=== PATIENT | female | born 1965 | race American Indian/Alaskan Native ===

== ENCOUNTER 2016-12-29 08:38 | Outpatient (CLI) | payer MEDICAID ==
[2016-12-29 09:28] LABS: Hematocrit 39.2 % (30.3-42.9); Hemoglobin 12.4 gm/dl (10.1-14.3); Mean Corpuscular HGB Conc 32 % (30-34); Platelet Count 265 K/mm3 (140-440); Red Blood Count 5.94 M/mm3 (3.65-5.03); Red Cell Distribution Width 15.1 % (13.2-15.2); White Blood Count 5.8 K/mm3 (4.5-11.0)
[2016-12-29 09:32] LABS: Mean Corpuscular Hemoglobin 21 pg (28-32); Mean Corpuscular Volume 66 fl (79-97)
[2016-12-29 09:54] LABS: Alanine Aminotransferase 19 units/L (7-56); Albumin 3.7 g/dL (3.9-5); Alkaline Phosphatase 30 units/L (35-129); Anion Gap 16 mmol/L; BUN/Creatinine Ratio 21.66; Bilirubin,Total 0.4 mg/dL (0.1-1.2); Blood Urea Nitrogen 13 mg/dL (7-17); Calcium 9.2 mg/dL (8.4-10.2); Carbon Dioxide 26 mmol/L (22-30); Chloride 99.1 mmol/L (98-107); Glucose 219 mg/dL (65-100); Potassium 3.5 mmol/L (3.6-5.0); Sodium 138 mmol/L (137-145); Total Protein 7.4 g/dL (6.3-8.2)
--- NOTE | 2016-12-29 11:10 | XRay Report ---
Chest 2 views: Compared to . History: Reflux. Findings: Normal cardiomediastinal silhouette. Trachea is midline. No consolidation, pneumothorax or pleural effusion. No significant interval change. Impression: No acute cardiopulmonary findings.
--- NOTE | 2016-12-29 11:30 | Fluoroscopy Report ---
Double contrast upper GI series. Findings: The esophagus is normal. There is no evidence of stricture or ulceration. No reflux was seen with water siphon testing. The stomach, duodenal bulb, and C-loop are normal. Impression: Normal double contrast upper GI study.
[2016-12-29 19:59] LABS: Cholesterol 230 mg/dL (50-199); HDL Cholesterol 44 mg/dL (40-59); LDL Cholesterol,Direct 159 mg/dL (50-130); Triglycerides 136 mg/dL (2-149)
== END 2016-12-29 08:39 | disposition home or self-care (01) ==
LOC: FLUORO 08:38
PROVIDERS: ATTEND Internal Medicine
DX: Z03.89 Encounter for observation for other suspected diseases and conditions ruled out (principal)
CPT/HCPCS: 36415; 71020; 74247; 80053; 80061; 82785; 84443; 85027

== ENCOUNTER 2017-01-17 01:17 | Emergency (ER) | payer MEDICAID ==
[2017-01-17 02:19] LABS: Anion Gap 19 mmol/L; BUN/Creatinine Ratio 14.28; Blood Urea Nitrogen 10 mg/dL (7-17); Calcium 9.4 mg/dL (8.4-10.2); Carbon Dioxide 25 mmol/L (22-30); Chloride 98.3 mmol/L (98-107); Glucose 404 mg/dL (65-100); Potassium 3.8 mmol/L (3.6-5.0); Sodium 138 mmol/L (137-145)
[2017-01-17 02:21] LABS: Basophils % (Auto) 0.2 % (0.0-1.8); Eosinophils % (Auto) 1.3 % (0.0-4.3); Hematocrit 39.1 % (30.3-42.9); Hemoglobin 12.5 gm/dl (10.1-14.3); Mean Corpuscular HGB Conc 32 % (30-34); Platelet Count 250 K/mm3 (140-440); Red Blood Count 5.92 M/mm3 (3.65-5.03); Red Cell Distribution Width 15.1 % (13.2-15.2); White Blood Count 7.2 K/mm3 (4.5-11.0)
[2017-01-17 02:30] LABS: Mean Corpuscular Hemoglobin 21 pg (28-32); Mean Corpuscular Volume 66 fl (79-97)
[2017-01-17] MEDS ORDERED: MORPHINE IV ONE (08:46)
[2017-01-17] MEDS ORDERED: TORADOL IV ONE (08:46)
[2017-01-17] MEDS ORDERED: ZOFRAN IV ONE (08:46)
[2017-01-17] MEDS ORDERED: NACL 0.9% 1000 ML 1,000 ML IV ONE (08:47)
[2017-01-17] MEDS ORDERED: CATAPRES PO ONE (08:47)
--- NOTE | 2017-01-17 09:07 | Emergency Department Report ---
ED Chest Pain HPI - General Chief Complaint: Chest Pain Stated Complaint: CHEST PAIN Time Seen by Provider: 01/17/17 08:28 Source: patient Mode of arrival: Ambulatory Limitations: No Limitations - History of Present Illness Initial Comments: 51-year-old female with a past medical history of morbid obesity, diabetes, hypertension, sleep apnea, narcolepsy, borderline high cholesterol and neuropathy and previous surgical history of cholecystectomy hysterectomy presents to the hospital complains of chest pain and hyperglycemia. Patient has had chest pain 1 week. Pain is in the middle of her chest, intermittent, described as a pressure. Moderate in intensity. Denies aggravating or alleviating factors. Positive shortness of breath reported. Patient states she has chronic shortness of breath and has been seen and evaluated by tmd teacher assistant Dr. Nevarez 4-5 months ago and received pulmonary function testing. As a result patient was started on Qvar and Albuterol inhaler as needed. Patient denies a specific pulmonary diagnosis. Patient also reports that her glucose has been in the 500s the last 2 days despite being compliant with her insulin. Patient states she hasn't had any of her medication this morning since she has been in the ED waiting to be seen Patient had a normal stress test 08/02/2016 - Related Data Home Medications Medication Instructions Recorded Confirmed Last Taken celeBREX 20 mg PO DAILY 08/02/16 01/17/17 08/01/16 Dextroamphetamine/Amphetamine 30 mg PO BID 01/17/17 01/17/17 Unknown [Adderall] Ergocalciferol [Vitamin D2] 1 cap PO QWEEK 01/17/17 01/17/17 Unknown Insulin Aspart Prot/Aspart(Nf) 25 units SQ BID 01/17/17 01/17/17 Unknown [Novolog Mix 70/30] Insulin Glargine [Lantus] 60 unit SUB-Q QHS 01/17/17 01/17/17 Unknown Previous Rx's Medication Instructions Recorded Last Taken Type Aspirin EC [Aspirin Enteric Coated 325 mg PO QDAY #100 tablet 11/28/15 08/01/16 Rx TAB] Lisinopril/Hydrochlorothiazide 10 mg PO QDAY #30 tablet 11/28/15 08/01/16 Rx [Zestoretic 20-25 mg] Metoprolol [Lopressor TAB] 12.5 mg PO BID #60 tablet 11/28/15 08/01/16 Rx Potassium Chloride [Klor-Con 8] 8 meq PO QDAY #30 tablet 11/28/15 08/01/16 Rx metFORMIN [Glucophage] 500 mg PO TID #90 tablet 11/28/15 08/01/16 Rx Famotidine [Pepcid] 20 mg PO BID #60 tablet 08/03/16 Unknown Rx Simvastatin [Zocor TAB] 20 mg PO QHS #30 tablet 08/03/16 Unknown Rx HYDROcodone/APAP 5-325 [[place] 1 each PO Q6HR PRN #20 tablet 01/17/17 Unknown Rx 5-325 mg TAB] Allergies Allergy/AdvReac Type Severity Reaction Status Date / Time No Known Allergies Allergy Verified 11/26/15 17:50 TIN score - Tin Score Age > 65: (0) No Aspirin use within the Past 7 Days: (0) No 3 or more CAD Risk Factors: (1) Yes 2 or more Angina events in past 24 hrs: (1) Yes Known CAD with more than 50% Stenosis: (0) No Elevated Cardiac Markers: (0) No ST Deviation Greater than 0.5mm: (0) No TIN Score: 2 ED Review of Systems ROS: Stated complaint: CHEST PAIN Other details as noted in HPI Comment: All other systems reviewed and negative Other: Constitutional: No fevers chills or weight loss Eyes: No eye pain visual changes or discharge ENT: No ear pain or throat pain Neck: Denies pain Respiratory: Denies cough wheezing Cardiovascular: Denies palpitations, syncope GI: Denies nausea, vomiting, diarrhea, constipation : Denies dysuria Musculoskeletal: Denies back pain Skin: Denies rash, lesions, erythema Neurologic: Denies headache, numbness, weakness Psychiatric: Denies suicidal ideation, hallucinations Hematological/lymphatic: Denies easy bruising, lymphadenopathy ED Past Medical Hx - Past Medical History Hx Hypertension: Yes Hx Congestive Heart Failure: No Hx Diabetes: Yes Hx Asthma: No Hx COPD: No Hx HIV: No Additional medical history: SLEEP APNEA. NARCOLEPSY. BORDERLINE HIGH CHOLESTEROL. OBESITY. NEUROPATHY - Surgical History Hx Cholecystectomy: Yes Additional Surgical History: HYSTERECTOMY - Social History Smoking Status: Never Smoker Substance Use Type: None - Medications Home Medications: Home Medications Medication Instructions Recorded Confirmed Last Taken Type Aspirin EC [Aspirin Enteric Coated 325 mg PO QDAY #100 tablet 11/28/15 01/17/1716 Rx TAB] Lisinopril/Hydrochlorothiazide 10 mg PO QDAY #30 tablet 11/28/15 01/17/17 Rx [Zestoretic 20-25 mg] Metoprolol [Lopressor TAB] 12.5 mg PO BID #60 tablet 11/28/15 01/17/17 08/01/16 Rx Potassium Chloride [Klor-Con 8] 8 meq PO QDAY #30 tablet 11/28/15 01/17/1708/01 Rx metFORMIN [Glucophage] 500 mg PO TID #90 tablet 11/28/15 01/17/17 08/01/16 Rx celeBREX 20 mg PO DAILY 08/02/16 01/17/17 08/01/16 History Famotidine [Pepcid] 20 mg PO BID #60 tablet 08/03/16 01/17/17 Unknown Rx Simvastatin [Zocor TAB] 20 mg PO QHS #30 tablet 08/03/16 01/17/17 Unknown Rx Dextroamphetamine/Amphetamine 30 mg PO BID 01/17/17 01/17/17 Unknown History [Adderall] Ergocalciferol [Vitamin D2] 1 cap PO QWEEK 01/17/17 01/17/17 Unknown History HYDROcodone/APAP 5-325 [[place] 1 each PO Q6HR PRN #20 tablet 01/17/17 Unknown Rx 5-325 mg TAB] Insulin Aspart Prot/Aspart(Nf) 25 units SQ BID 01/17/17 01/17/17 Unknown History [Novolog Mix 70/30] Insulin Glargine [Lantus] 60 unit SUB-Q QHS 01/17/17 01/17/17 Unknown History ED Physical Exam - General Limitations: No Limitations - Other Other exam information: General: No limitations, patient is alert in no acute distress Head exam: Atraumatic, normocephalic Eyes exam: Normal appearance ENT: Moist mucous membrane, normal oropharynx Neck exam: Normal inspection, full range of motion Respiratory exam: Clear to auscultation bilateral, no wheezes, rales, crackles Cardiovascular: Normal rate and rhythm Abdomen: Soft, nondistended, and nontender, with normal bowel sounds, no rebound, or guarding Extremity: Full range of motion normal inspection no deformity, no calf tenderness or edema Back: Normal Inspection, full range of motion, no tenderness Neurologic: Alert, oriented x3, cranial nerves intact, no motor or sensory deficit Psychiatric: normal affect, normal mood Skin: Warm, dry, intact ED Course Vital Signs 01/17/17 01/17/17 01/17/17 01:24 08:24 08:30 Temperature 98.4 F Pulse Rate 110 H 98 H Respiratory 20 14 Rate Blood Pressure 177/115 145/114 Blood Pressure [Left] O2 Sat by Pulse 98 98 98 Oximetry 01/17/17 01/17/17 01/17/17 09:00 09:30 10:00 Temperature Pulse Rate 93 H 88 102 H Respiratory 20 20 22 Rate Blood Pressure 145/114 145/114 145/114 Blood Pressure [Left] O2 Sat by Pulse 99 96 97 Oximetry 01/17/17 01/17/17 01/17/17 10:27 10:28 10:30 Temperature Pulse Rate 91 H Respiratory 20 20 15 Rate Blood Pressure 151/100 Blood Pressure [Left] O2 Sat by Pulse 94 Oximetry 01/17/17 01/17/17 01/17/17 11:00 11:22 11:30 Temperature Pulse Rate 95 H 90 87 Respiratory 14 14 Rate Blood Pressure 143/91 143/91 143/91 Blood Pressure [Left] O2 Sat by Pulse 98 93 Oximetry 01/17/17 01/17/17 01/17/17 12:00 12:30 13:00 Temperature Pulse Rate 91 H 92 H 84 Respiratory 18 17 17 Rate Blood Pressure 154/97 154/97 154/97 Blood Pressure 129/79 [Left] O2 Sat by Pulse 96 96 91 Oximetry 01/17/17 01/17/17 13:30 14:00 Temperature Pulse Rate 84 80 Respiratory 13 20 Rate Blood Pressure 129/79 146/94 Blood Pressure [Left] O2 Sat by Pulse 92 93 Oximetry - Consultations Consultation #1: 01/17/[address] Berrios was asked to consult on the patient regarding her insulin/ diabetes therapy. Dietary changes recommended. See his note ED Medical Decision Making - Lab Data Result diagrams: 01/17/17 01:45 01/17/17 01:45 Lab Results 01/17/17 01/17/17 01/17/17 Range/Units 01:45 01:45 01:45 WBC 7.2 (4.5-11.0) K/mm3 RBC 5.92 H (3.65-5.03) M/mm3 Hgb 12.5 (10.1-14.3) gm/dl Hct 39.1 (30.3-42.9) % MCV 66 L (79-97) fl MCH 21 L (28-32) pg MCHC 32 (30-34) % RDW 15.1 (13.2-15.2) % Plt Count 250 (140-440) K/mm3 Lymph % (Auto) 28.9 (13.4-35.0) % [place] % (Auto) 6.7 (0.0-7.3) % Eos % (Auto) 1.3 (0.0-4.3) % Baso % (Auto) 0.2 (0.0-1.8) % Lymph # 2.1 (1.2-5.4) K/mm3 [place] # 0.5 (0.0-0.8) K/mm3 Eos # 0.1 (0.0-0.4) K/mm3 Baso # 0.0 (0.0-0.1) K/mm3 Seg Neutrophils % 62.9 (40.0-70.0) % Seg Neutrophils # 4.5 (1.8-7.7) K/mm3 D-Dimer (0-234) ng/mlDDU VBG pH 7.406 (7.320-7.420) Sodium 138 (137-145) mmol/L Potassium 3.8 (3.6-5.0) mmol/L Chloride 98.3 (98-107) mmol/L Carbon Dioxide 25 (22-30) mmol/L Anion Gap 19 mmol/L BUN 10 (7-17) mg/dL Creatinine 0.7 (0.7-1.2) mg/dL Estimated GFR > 60 ml/min BUN/Creatinine Ratio 14.28 % Glucose 404 H (65-100) mg/dL Calcium 9.4 (8.4-10.2) mg/dL Troponin T < 0.010 (0.00-0.029) ng/mL Urine Color (Yellow) Urine Turbidity (Clear) Urine pH (5.0-7.0) Ur Specific [place] (1.003-1.030) Urine Protein (Negative) mg/dL Urine Glucose (UA) (Negative) mg/dL Urine Ketones (Negative) mg/dL Urine Blood (Negative) Urine Nitrite (Negative) Urine Bilirubin (Negative) Urine Urobilinogen (<2.0) mg/dL Ur Leukocyte Esterase (Negative) Urine WBC (Auto) (0.0-6.0) /HPF Urine RBC (Auto) (0.0-6.0) /HPF U Epithel Cells (Auto) (0-13.0) /HPF 01/17/17 01/17/17 01/17/17 Range/Units 04:35 07:29 09:21 WBC (4.5-11.0) K/mm3 RBC (3.65-5.03) M/mm3 Hgb (10.1-14.3) gm/dl Hct (30.3-42.9) % MCV (79-97) fl MCH (28-32) pg MCHC (30-34) % RDW (13.2-15.2) % Plt Count (140-440) K/mm3 Lymph % (Auto) (13.4-35.0) % [place] % (Auto) (0.0-7.3) % Eos % (Auto) (0.0-4.3) % Baso % (Auto) (0.0-1.8) % Lymph # (1.2-5.4) K/mm3 [place] # (0.0-0.8) K/mm3 Eos # (0.0-0.4) K/mm3 Baso # (0.0-0.1) K/mm3 Seg Neutrophils % (40.0-70.0) % Seg Neutrophils # (1.8-7.7) K/mm3 D-Dimer 243.84 H (0-234) ng/mlDDU VBG pH (7.320-7.420) Sodium (137-145) mmol/L Potassium (3.6-5.0) mmol/L Chloride (98-107) mmol/L Carbon Dioxide (22-30) mmol/L Anion Gap mmol/L BUN (7-17) mg/dL Creatinine (0.7-1.2) mg/dL Estimated GFR ml/min BUN/Creatinine Ratio % Glucose (65-100) mg/dL Calcium (8.4-10.2) mg/dL Troponin T < 0.010 < 0.010 (0.00-0.029) ng/mL Urine Color (Yellow) Urine Turbidity (Clear) Urine pH (5.0-7.0) Ur Specific [place] (1.003-1.030) Urine Protein (Negative) mg/dL Urine Glucose (UA) (Negative) mg/dL Urine Ketones (Negative) mg/dL Urine Blood (Negative) Urine Nitrite (Negative) Urine Bilirubin (Negative) Urine Urobilinogen (<2.0) mg/dL Ur Leukocyte Esterase (Negative) Urine WBC (Auto) (0.0-6.0) /HPF Urine RBC (Auto) (0.0-6.0) /HPF U Epithel Cells (Auto) (0-13.0) /HPF 01/17/17 01/17/17 Range/Units 09:21 11:09 WBC (4.5-11.0) K/mm3 RBC (3.65-5.03) M/mm3 Hgb (10.1-14.3) gm/dl Hct (30.3-42.9) % MCV (79-97) fl MCH (28-32) pg MCHC (30-34) % RDW (13.2-15.2) % Plt Count (140-440) K/mm3 Lymph % (Auto) (13.4-35.0) % [place] % (Auto) (0.0-7.3) % Eos % (Auto) (0.0-4.3) % Baso % (Auto) (0.0-1.8) % Lymph # (1.2-5.4) K/mm3 [place] # (0.0-0.8) K/mm3 Eos # (0.0-0.4) K/mm3 Baso # (0.0-0.1) K/mm3 Seg Neutrophils % (40.0-70.0) % Seg Neutrophils # (1.8-7.7) K/mm3 D-Dimer (0-234) ng/mlDDU VBG pH (7.320-7.420) Sodium (137-145) mmol/L Potassium (3.6-5.0) mmol/L Chloride (98-107) mmol/L Carbon Dioxide (22-30) mmol/L Anion Gap mmol/L BUN (7-17) mg/dL Creatinine (0.7-1.2) mg/dL Estimated GFR ml/min BUN/Creatinine Ratio % Glucose (65-100) mg/dL Calcium (8.4-10.2) mg/dL Troponin T < 0.010 (0.00-0.029) ng/mL Urine Color Yellow (Yellow) Urine Turbidity Clear (Clear) Urine pH 6.0 (5.0-7.0) Ur Specific [place] 1.025 (1.003-1.030) Urine Protein <15 mg/dl (Negative) mg/dL Urine Glucose (UA) >=500 (Negative) mg/dL Urine Ketones Tr (Negative) mg/dL Urine Blood Neg (Negative) Urine Nitrite Neg (Negative) Urine Bilirubin Neg (Negative) Urine Urobilinogen < 2.0 (<2.0) mg/dL Ur Leukocyte Esterase Neg (Negative) Urine WBC (Auto) 1.0 (0.0-6.0) /HPF Urine RBC (Auto) 2.0 (0.0-6.0) /HPF U Epithel Cells (Auto) 1.0 (0-13.0) /HPF - EKG Data -: EKG Interpreted by Me (sinus 109, nonspecific t wave abnl) - EKG Data When compared to previous EKG there are: no significant change (08/02/16) - Radiology Data Radiology results: report reviewed (chest x-ray: No acute findings chronic elevation of right hemidiaphragm) - Medical Decision Making Symptoms improved with the ED treatment. Glucose trending downward. No laboratory findings of DKA. Patient counseled on the importance of adhering to a lower calorie diet (1500 daily calorie intake suggested) and making better food choices. Patient admits to increase calorie intake specifically at night. Adjustments and insulin were not made and instead patient was instructed to try dietary changes and follow-up with her primary care doctor. Chest pain evaluation reveals unchanged EKG, for negative cardiac enzymes, negative d-dimer and pain is atypical. Recent negative stress test performed and July 2016. Patient feeling better and no longer complaining of chest pain prior to ED disposition. Patient received her regular prescribed medication for hypertension and had improvement in her BP during ED stay. - Differential Diagnosis DKA, [place], unstable angina, PE, costochondritis, infection Critical Care Time: No Critical care attestation.: If time is entered above; I have spent that time in minutes in the direct care of this critically ill patient, excluding procedure time. ED Disposition Clinical Impression: HTN (hypertension), Sleep apnea, Atypical chest pain, Uncontrolled diabetes mellitus Disposition: DISCHARGED TO HOME OR SELFCARE Is pt being admited?: No Does the pt Need Aspirin: No Condition: Stable Instructions: Hypertension (ED), Chest Pain (ED), Diabetes Mellitus Type 2 in Adults (ED) Additional Instructions: Take the medication as prescribed. Follow very closely with your primary care doctor for reevaluation of your diabetes medication. Return if symptoms worsen. Prescriptions: HYDROcodone/APAP 5-325 [[place] 5-325 mg TAB] 1 each PO Q6HR PRN #20 tablet PRN Reason: Pain Referrals: MALAIKA BASS MD [Primary Care Provider] - 2-3 Days Time of Disposition: 14:32
--- NOTE | 2017-01-17 09:33 | XRay Report ---
PA and lateral chest Chest pain, shortness of breath. The right hemidiaphragm is moderately elevated. The lungs are generally clear and the heart is normal in size with no vascular congestion. The pleural surfaces are smooth. These findings appear unchanged compared to November 2015. Impression: No acute findings. Chronic eventration of the right hemidiaphragm.
--- NOTE | 2017-01-17 09:35 | Admit Criteria Form ---
Admission Criteria Documentation: CHEST PAIN Clinical Indications for Admission to Inpatient Care (Place 'X' for any and all applicable criteria): Admission is indicated for chest pain and ANY ONE of the following(1)(2)(3)(4)(5 ): [ ]I. Angina with acute coronary syndrome (Also use Myocardial Infarction or Angina guideline) [ ]II. Hemodynamic instability [ ]III. Angina needing acute intervention as indicated by ALL of the following( 11)(12): [ ]a) Unstable angina is present as indicated by angina that is ANY ONE of the following: [ ]i) New onset [ ]ii) Nocturnal [ ]iii) Prolonged at rest [ ]iv) Progressive [X]b) Angina warrants acute intervention as indicated by ANY ONE of the following: [ ]i) Recurrent angina (e.g, not responding as previously to treatment) [ ]ii) Angina at rest or with low-level activities despite initial medical therapy [ ]iii) New or presumably new ST-segment depression on ECG [ ]iv) Signs or symptoms of heart failure (eg, dyspnea, pulmonary edema) [ ]v) New or worsening mitral regurgitation [ ]vi) Hemodynamic instability [ ]vii) Dangerous arrhythmia (eg, sustained ventricular tachycardia) [ ]viii) History of percutaneous coronary intervention within 6 months [ ]ix) History of coronary artery bypass graft surgery [X]x) TIN risk score of 2 or greater[A] [X]xi) History of Diabetes(14) [ ]xii) High-risk cardiac ischemia findings on noninvasive testing (e.g, echocardiogram, treadmill testing, nuclear scan) [ ]xiii) Chronic renal insufficiency (ie, estimated GFR less than 60 mL/min/1.732m) [ ]xiv) Left ventricular ejection fraction less than 40% [ ]IV. Evidence of UT (eg, cardiac biomarkers positive, ST-segment elevation on ECG) also use Myocardial Infarction Criteria Form. [ ]V. Pulmonary edema [ ]. Respiratory distress [ ]VII. Chest pain indicative of serious diagnosis other than coronary artery disease (eg, aortic dissection) [ ]VIII. Contraindications and/or Inappropriate clinical situations for Observational Care in patients with Chest Pain, when ANY ONE of the following is required: [ ]a) Patient with risk factor for pulmonary embolism, acute coronary syndrome and myocardial infarction (18) [ ]b) Patient with Pulmonary embolism require an average LOS of 4.3 days, therefore emergency department observation management is inappropriate 18,23 [ ]c) Painful condition/s in the elderly, have the highest rate of recidivism after emergency department observation management (10.8%) 20,21,22 [ ]d) Elevated cardiac biomarker requires intensive and exhaustive care (19) [ ]IX. General contraindications and/or Inappropriate clinical situations for Observational Care in patients with Chest Pain, when ANY ONE of the following is required: [ ]a) Prediction of prolongation of LOS based on ANY ONE of the following may be considered as a contraindication for observational care 2, 3, 4, 5, 6, 7, 8, 9, 10, 11 [ ]i) Age > 65 yrs. [ ]ii) Patient arriving by ambulance [ ]iii) Patient with high acuity [ ]iv) Patient requiring vital sign monitoring [ ]v) Patient on IV medication [ ]b) Systolic blood pressures 180mmHg 3,12 [ ]c) Patient with altered mental status including delirium and other alteration of consciousness, (3) [ ]d) Patient whose discharge disposition will be to a senior care home or rehabilitation home should not be managed in Emergency Department Observation Unit. CMS rule requires 3 days hospital stay before such placement. 3,13 [ ]e) Patient with failure to thrive due to broad array of etiologies 3,16,17 [ ]f) Inability to ambulate 3,14 Extended stay beyond goal length of stay may be needed for (1)(28): [ ]a) Specific condition diagnosed after evaluation (eg, pulmonary embolism, aortic dissection) [ ]b) Unstable angina [ ]c) Continued suspicion of acute coronary syndrome with inability to complete needed cardiac evaluation (eg, patient clinically unable to undergo stress testing) [ ]d) Myocardial infarction (Contents from ANGINA and CHEST PAIN clinical indications for admission to inpatient care have been integrated in this form) The original [employer] content created by [employer] has been revised. The portions of the content which have been revised are identified through the use of italic text or in bold, and [employer] has neither reviewed nor approved the modified material. All other unmodified content is copyright [employer]. Please see references footnoted in the original [employer] [facility] edition 2016
[2017-01-17] MEDS ORDERED: LOPRESSOR PO ONE (10:52)
[2017-01-17] MEDS ORDERED: ZESTRIL PO ONE (10:52)
[2017-01-17] MEDS ORDERED: HCTZ PO ONE (10:52)
[2017-01-17 12:16] LABS: Bilirubin,Urine NEG (Negative); Blood,Urine NEG (Negative); Ketones,Urine TR mg/dL (Negative); Leukocyte Esterase,Urine NEG (Negative); Nitrite,Urine NEG (Negative); Protein,Urine <15 mg/dL mg/dL (Negative); Urobilinogen,Urine < 2.0 mg/dL (<2.0)
[2017-01-17] MEDS ORDERED: GLUCOPHAGE PO ONE (13:38)
[2017-01-17 14:20] VITALS: BP 146/94
[2017-01-22 23:29] LABS: B-Hydroxybutyrate 0.1 mmol/L (0.2 - 0.28)
== END 2017-01-17 14:42 | disposition home or self-care (01) ==
LOC: ED 01:17
DX: I10 Essential (primary) hypertension (principal); G47.30 Sleep apnea, unspecified; E11.9 Type 2 diabetes mellitus without complications; R07.89 Other chest pain; Z90.710 Acquired absence of both cervix and uterus; Z79.82 Long term (current) use of aspirin; E78.00 Pure hypercholesterolemia, unspecified; E66.9 Obesity, unspecified; G62.9 Polyneuropathy, unspecified
CPT/HCPCS: 36415; 71020; 80048; 81001; 82010; 82805; 82962; 84484; 85025; 85379; 93005; 93010; 96361; 96374; 96375; 99285; J1885; J2270; J2405; J7030; J1815

== ENCOUNTER 2017-03-30 10:12 | Outpatient (CLI) | payer MEDICAID ==
[2017-03-30 11:07] LABS: Blood Urea Nitrogen 11 mg/dL (7-17)
--- NOTE | 2017-03-30 13:52 | Cat Scan Report ---
CTA CHEST INDICATION: Elevated d-dimer. COMPARISON: None similar. FINDINGS: Chest CTA performed following intravenous administration of 100 cc of Omnipaque 350. Rotational MIP's also obtained. Normal heart size. No effusions. No aortic aneurysm, dissection or suspicious pulmonary arterial filling defects, to the extent assessed. No size significant adenopathy. Normal airway. Left thyroid lobe somewhat heterogeneous and larger than the right with subtle goitrous change not entirely excluded. Clear lungs. Mild to moderately elevated right hemidiaphragm, stable dating back to November 2015 CXR. Nonspecific distal esophageal wall prominence/thickening, not excluded for gastroesophageal reflux and/or hiatal hernia, amongst others. Images through included upper abdomen reveal no acute abnormality. Liver though enlarged to approximately 22 cm in midclavicular length with fatty infiltration not excluded. Cholecystectomy clips. Mild multilevel imaged spinal degenerative changes/spurring. CONCLUSION: No CT evidence of pulmonary embolism with various other incidental findings, as above. Thank you for the opportunity to participate in this patient's care.
--- NOTE | 2017-03-31 07:27 | Vascular Lab Report ---
LOWER EXTREMITY VENOUS DUPLEX: REASON FOR EXAM: Elevated d-dimer. COMMENTS ON THE RIGHT: All veins visualized are freely compressible without evidence of internal echogenicity. Flow is spontaneous and phasic throughout. COMMENTS ON THE LEFT: All veins visualized are freely compressible without evidence of internal echogenicity. Flow is spontaneous and phasic throughout. IMPRESSION: No evidence of acute or chronic deep venous thrombosis in either lower extremity.
== END 2017-03-30 10:13 | disposition home or self-care (01) ==
LOC: VAS 10:12
PROVIDERS: ATTEND Internal Medicine
DX: R06.02 Shortness of breath (principal); R79.1 Abnormal coagulation profile; J98.6 Disorders of diaphragm; M47.899 Other spondylosis, site unspecified; I10 Essential (primary) hypertension; E11.9 Type 2 diabetes mellitus without complications; E78.5 Hyperlipidemia, unspecified; Z90.49 Acquired absence of other specified parts of digestive tract
CPT/HCPCS: 36415; 71275; 82565; 84520; 93970; Q9967

== ENCOUNTER 2018-01-04 20:03 | Emergency (ER) | payer MEDICARE ==
[2018-01-04] MEDS ORDERED: ASPIRIN PO ONE (20:26)
[2018-01-04 20:50] LABS: Basophils % (Auto) 0.5 % (0.0-1.8); Eosinophils # (Auto) 0.1 K/mm3 (0.0-0.4); Eosinophils % (Auto) 2.5 % (0.0-4.3); Hematocrit 42.2 % (30.3-42.9); Hemoglobin 13.3 gm/dl (10.1-14.3); Lymphocytes # (Auto) 1.9 K/mm3 (1.2-5.4); Lymphocytes % (Auto) 36.7 % (13.4-35.0); Mean Corpuscular HGB Conc 32 % (30-34); Monocytes # (Auto) 0.4 K/mm3 (0.0-0.8); Platelet Count 209 K/mm3 (140-440); Red Blood Count 6.08 M/mm3 (3.65-5.03); Red Cell Distribution Width 13.9 % (13.2-15.2)
[2018-01-04 20:51] LABS: Mean Corpuscular Hemoglobin 22 pg (28-32); Mean Corpuscular Volume 69 fl (79-97)
[2018-01-04 21:02] LABS: BUN/Creatinine Ratio 11; Blood Urea Nitrogen 10 mg/dL (7-17); Calcium 9.2 mg/dL (8.4-10.2); Hemolysis Index 16
[2018-01-04 21:12] LABS: Bilirubin,Urine NEG (Negative); Blood,Urine NEG (Negative); Color,Urine Straw (Yellow); Mucus,Urine FEW /HPF; Protein,Urine <15 mg/dL mg/dL (Negative); RBC,Urine < 1.0 /HPF (0.0-6.0); Urobilinogen,Urine < 2.0 mg/dL (<2.0); WBC,Urine < 1.0 /HPF (0.0-6.0)
[2018-01-04] MEDS ORDERED: NACL 0.9% 1000 ML 1,000 ML IV ONE (22:26)
[2018-01-04] MEDS ORDERED: HumuLIN R IV ONE (22:26)
[2018-01-04] MEDS ORDERED: CATAPRES PO ONE (22:26)
[2018-01-04] MEDS ORDERED: NORCO 5/325 PO ONE (22:26)
[2018-01-04] MEDS ORDERED: ASPIRIN ONE (22:58)
--- NOTE | 2018-01-04 23:36 | XRay Report ---
FINAL REPORT PROCEDURE: XR CHEST ROUTINE 2V TECHNIQUE: PA and lateral chest radiographs were obtained. CPT 56575 HISTORY: chest pain COMPARISON: No prior studies are available for comparison. FINDINGS: Heart: Normal. Mediastinum/Vessels: Normal. Lungs/Pleural space: There is moderate degree elevation of right hemidiaphragm. Bilateral lungs and pleural space are clear.. Bony thorax: No acute osseous abnormality. Other: IMPRESSION: No acute pulmonary process..
[2018-01-05] MEDS ORDERED: NORMODYNE IV ONE (00:03)
--- NOTE | 2018-01-05 01:55 | Emergency Department Report ---
ED Chest Pain HPI - General Chief Complaint: Chest Pain Stated Complaint: CP; SOB; NECK PAIN Time Seen by Provider: 01/04/18 22:15 Source: patient Mode of arrival: Ambulatory Limitations: No Limitations - History of Present Illness Initial Comments: Patient is a 52-year-old Female who has past medical history of hypertension and diabetes who is presenting with chest pain. Patient states that for the past 2 weeks she's been having some sharp chest pains that last just a few seconds in the chest, coming go intermittently. Patient states that at times today came be some shortness of breath associated with a sharp pain. Patient states it never last more than a few seconds until tonight where she was walking up some stairs and had some chest pain that was more right sided headaches radiating to her right shoulder. This lasted approximately half hour. Patient also states she's had some increased thirst and urination and some mild blurry vision. Patient denies missing any doses of her medications. Patient states her last stress test was approximately 6 months ago and was within normal limits. Severity scale (0 -10): 6 - Related Data Home Medications Medication Instructions Recorded Confirmed Last Taken celeBREX 20 mg PO DAILY 08/02/16 01/17/17 08/01/16 Dextroamphetamine/Amphetamine 30 mg PO BID 01/17/17 01/17/17 Unknown [Adderall] Ergocalciferol [Vitamin D2] 1 cap PO QWEEK 01/17/17 01/17/17 Unknown Insulin Aspart Prot/Aspart(Nf) 25 units SQ BID 01/17/17 01/17/17 Unknown [Novolog Mix 70/30] Insulin Glargine [Lantus] 60 unit SUB-Q QHS 01/17/17 01/17/17 Unknown Previous Rx's Medication Instructions Recorded Last Taken Type Aspirin EC [Aspirin Enteric Coated 325 mg PO QDAY #100 tablet 11/28/15 08/01/16 Rx TAB] Lisinopril/Hydrochlorothiazide 10 mg PO QDAY #30 tablet 11/28/15 08/01/16 Rx [Zestoretic 20-25 mg] Potassium Chloride [Klor-Con 8] 8 meq PO QDAY #30 tablet 11/28/15 08/01/16 Rx metFORMIN [Glucophage] 500 mg PO TID #90 tablet 11/28/15 08/01/16 Rx Famotidine [Pepcid] 20 mg PO BID #60 tablet 08/03/16 Unknown Rx Simvastatin [Zocor TAB] 20 mg PO QHS #30 tablet 08/03/16 Unknown Rx HYDROcodone/APAP 5-325 [[place] 1 each PO Q6HR PRN #20 tablet 01/17/17 Unknown Rx 5-325 mg TAB] Metoprolol [Lopressor TAB] 25 mg PO BID #60 tablet 01/05/18 Unknown Rx Allergies Allergy/AdvReac Type Severity Reaction Status Date / Time No Known Allergies Allergy Verified 11/26/15 17:50 Heart Score - HEART Score History: Slightly suspicious EKG: Normal Age: 45-65 Risk factors: 1-2 risk factors Troponin: < normal limit HEART Score: 2 ED Review of Systems ROS: Stated complaint: CP; SOB; NECK PAIN Other details as noted in HPI Comment: All other systems reviewed and negative ED Past Medical Hx - Past Medical History Hx Hypertension: Yes Hx Congestive Heart Failure: No Hx Diabetes: Yes Hx Asthma: No Hx COPD: No Hx HIV: No Additional medical history: SLEEP APNEA. NARCOLEPSY. BORDERLINE HIGH CHOLESTEROL. OBESITY. NEUROPATHY - Surgical History Hx Cholecystectomy: Yes Additional Surgical History: HYSTERECTOMY - Social History Smoking Status: Never Smoker Substance Use Type: None - Medications Home Medications: Home Medications Medication Instructions Recorded Confirmed Last Taken Type Aspirin EC [Aspirin Enteric Coated 325 mg PO QDAY #100 tablet 11/28/15 01/17/17 08/01/16 Rx TAB] Lisinopril/Hydrochlorothiazide 10 mg PO QDAY #30 tablet 11/28/15 01/17/17 Rx [Zestoretic 20-25 mg] Potassium Chloride [Klor-Con 8] 8 meq PO QDAY #30 tablet 11/28/15 01/17/1708/01 Rx metFORMIN [Glucophage] 500 mg PO TID #90 tablet 11/28/15 01/17/17 08/01/16 Rx celeBREX 20 mg PO DAILY 08/02/16 01/17/17 08/01/16 History Famotidine [Pepcid] 20 mg PO BID #60 tablet 08/03/16 01/17/17 Unknown Rx Simvastatin [Zocor TAB] 20 mg PO QHS #30 tablet 08/03/16 01/17/17 Unknown Rx Dextroamphetamine/Amphetamine 30 mg PO BID 01/17/17 01/17/17 Unknown History [Adderall] Ergocalciferol [Vitamin D2] 1 cap PO QWEEK 01/17/17 01/17/17 Unknown History HYDROcodone/APAP 5-325 [[place] 1 each PO Q6HR PRN #20 tablet 01/17/17 Unknown Rx 5-325 mg TAB] Insulin Aspart Prot/Aspart(Nf) 25 units SQ BID 01/17/17 01/17/17 Unknown History [Novolog Mix 70/30] Insulin Glargine [Lantus] 60 unit SUB-Q QHS 01/17/17 01/17/17 Unknown History Metoprolol [Lopressor TAB] 25 mg PO BID #60 tablet 01/05/18 Unknown Rx ED Physical Exam - General Limitations: No Limitations General appearance: alert, in no apparent distress - Head Head exam: Present: atraumatic, normocephalic - Eye Eye exam: Present: normal appearance - ENT ENT exam: Present: mucous membranes moist - Neck Neck exam: Present: normal inspection - Respiratory Respiratory exam: Present: normal lung sounds bilaterally. Absent: respiratory distress, wheezes, rales, rhonchi - Cardiovascular Cardiovascular Exam: Present: regular rate, normal rhythm. Absent: systolic murmur, diastolic murmur, rubs, gallop - GI/Abdominal GI/Abdominal exam: Present: soft, normal bowel sounds. Absent: distended, tenderness, guarding, rebound, rigid - Extremities Exam Extremities exam: Present: normal inspection - Back Exam Back exam: Present: normal inspection - Neurological Exam Neurological exam: Present: alert, oriented X3 - Psychiatric Psychiatric exam: Present: normal affect, normal mood - Skin Skin exam: Present: warm, dry, intact, normal color. Absent: rash ED Course Vital Signs 01/04/18 01/04/18 01/04/18 20:18 21:42 21:45 Temperature 98 F Pulse Rate 106 H 84 102 H Respiratory 18 14 15 Rate Blood Pressure 183/109 O2 Sat by Pulse 98 96 95 Oximetry 01/04/18 01/04/18 01/04/18 22:00 22:13 22:15 Temperature Pulse Rate 94 H 92 H 89 Respiratory 23 27 H 35 H Rate Blood Pressure 159/104 159/104 159/104 O2 Sat by Pulse 95 98 97 Oximetry 01/04/18 01/04/18 01/04/18 23:15 23:30 23:45 Temperature Pulse Rate Respiratory Rate Blood Pressure 176/116 176/116 176/116 O2 Sat by Pulse 97 96 96 Oximetry 01/05/18 01/05/18 01/05/18 00:00 00:15 00:31 Temperature Pulse Rate Respiratory Rate Blood Pressure 185/128 175/108 155/99 O2 Sat by Pulse 98 98 93 Oximetry 01/05/18 01/05/18 01/05/18 00:43 00:45 01:15 Temperature Pulse Rate 101 H Respiratory Rate Blood Pressure 178/108 185/128 155/99 O2 Sat by Pulse 96 96 Oximetry 01/05/18 01/05/18 01:30 01:45 Temperature Pulse Rate Respiratory Rate Blood Pressure 131/65 131/65 O2 Sat by Pulse 95 96 Oximetry TIN score - Tin Score Age > 65: (0) No Aspirin use within the Past 7 Days: (0) No 3 or more CAD Risk Factors: (1) Yes 2 or more Angina events in past 24 hrs: (1) Yes Known CAD with more than 50% Stenosis: (0) No Elevated Cardiac Markers: (0) No ST Deviation Greater than 0.5mm: (0) No TIN Score: 2 ED Medical Decision Making - Lab Data Result diagrams: 01/04/18 20:33 01/04/18 20:33 Lab Results 01/04/18 01/04/18 01/04/18 Range/Units 20:27 20:33 20:33 WBC 5.1 (4.5-11.0) K/mm3 RBC 6.08 H (3.65-5.03) M/mm3 Hgb 13.3 (10.1-14.3) gm/dl Hct 42.2 (30.3-42.9) % MCV 69 L (79-97) fl MCH 22 L (28-32) pg MCHC 32 (30-34) % RDW 13.9 (13.2-15.2) % Plt Count 209 (140-440) K/mm3 Lymph % (Auto) 36.7 H (13.4-35.0) % [place] % (Auto) 8.0 H (0.0-7.3) % Eos % (Auto) 2.5 (0.0-4.3) % Baso % (Auto) 0.5 (0.0-1.8) % Lymph # 1.9 (1.2-5.4) K/mm3 Crawford # 0.4 (0.0-0.8) K/mm3 Eos # 0.1 (0.0-0.4) K/mm3 Baso # 0.0 (0.0-0.1) K/mm3 Seg Neutrophils % 52.3 (40.0-70.0) % Seg Neutrophils # 2.7 (1.8-7.7) K/mm3 VBG pH (7.320-7.420) Sodium 133 L (137-145) mmol/L Potassium 4.1 (3.6-5.0) mmol/L Chloride 93.3 L (98-107) mmol/L Carbon Dioxide 24 (22-30) mmol/L Anion Gap 20 mmol/L BUN 10 (7-17) mg/dL Creatinine 0.9 (0.7-1.2) mg/dL Estimated GFR > 60 ml/min BUN/Creatinine Ratio 11 % Glucose 560 H* (65-100) mg/dL POC Glucose 485 H (70-105) Calcium 9.2 (8.4-10.2) mg/dL Troponin T < 0.010 (0.00-0.029) ng/mL Urine Color (Yellow) Urine Turbidity (Clear) Urine pH (5.0-7.0) Ur Specific [place] (1.003-1.030) Urine Protein (Negative) mg/dL Urine Glucose (UA) (Negative) mg/dL Urine Ketones (Negative) mg/dL Urine Blood (Negative) Urine Nitrite (Negative) Urine Bilirubin (Negative) Urine Urobilinogen (<2.0) mg/dL Ur Leukocyte Esterase (Negative) Urine WBC (Auto) (0.0-6.0) /HPF Urine RBC (Auto) (0.0-6.0) /HPF U Epithel Cells (Auto) (0-13.0) /HPF Urine Mucus /HPF 01/04/18 01/04/18 01/04/18 Range/Units 20:33 20:40 23:06 WBC (4.5-11.0) K/mm3 RBC (3.65-5.03) M/mm3 Hgb (10.1-14.3) gm/dl Hct (30.3-42.9) % MCV (79-97) fl MCH (28-32) pg MCHC (30-34) % RDW (13.2-15.2) % Plt Count (140-440) K/mm3 Lymph % (Auto) (13.4-35.0) % [place] % (Auto) (0.0-7.3) % Eos % (Auto) (0.0-4.3) % Baso % (Auto) (0.0-1.8) % Lymph # (1.2-5.4) K/mm3 [place] # (0.0-0.8) K/mm3 Eos # (0.0-0.4) K/mm3 Baso # (0.0-0.1) K/mm3 Seg Neutrophils % (40.0-70.0) % Seg Neutrophils # (1.8-7.7) K/mm3 VBG pH 7.415 (7.320-7.420) Sodium (137-145) mmol/L Potassium (3.6-5.0) mmol/L Chloride (98-107) mmol/L Carbon Dioxide (22-30) mmol/L Anion Gap mmol/L BUN (7-17) mg/dL Creatinine (0.7-1.2) mg/dL Estimated GFR ml/min BUN/Creatinine Ratio % Glucose (65-100) mg/dL POC Glucose (70-105) Calcium (8.4-10.2) mg/dL Troponin T < 0.010 (0.00-0.029) ng/mL Urine Color Straw (Yellow) Urine Turbidity Clear (Clear) Urine pH 6.0 (5.0-7.0) Ur Specific [place] 1.025 (1.003-1.030) Urine Protein <15 mg/dl (Negative) mg/dL Urine Glucose (UA) >=500 (Negative) mg/dL Urine Ketones Neg (Negative) mg/dL Urine Blood Neg (Negative) Urine Nitrite Neg (Negative) Urine Bilirubin Neg (Negative) Urine Urobilinogen < 2.0 (<2.0) mg/dL Ur Leukocyte Esterase Neg (Negative) Urine WBC (Auto) < 1.0 (0.0-6.0) /HPF Urine RBC (Auto) < 1.0 (0.0-6.0) /HPF U Epithel Cells (Auto) < 1.0 (0-13.0) /HPF Urine Mucus Few /HPF 01/05/18 Range/Units 00:19 WBC (4.5-11.0) K/mm3 RBC (3.65-5.03) M/mm3 Hgb (10.1-14.3) gm/dl Hct (30.3-42.9) % MCV (79-97) fl MCH (28-32) pg MCHC (30-34) % RDW (13.2-15.2) % Plt Count (140-440) K/mm3 Lymph % (Auto) (13.4-35.0) % [place] % (Auto) (0.0-7.3) % Eos % (Auto) (0.0-4.3) % Baso % (Auto) (0.0-1.8) % Lymph # (1.2-5.4) K/mm3 [place] # (0.0-0.8) K/mm3 Eos # (0.0-0.4) K/mm3 Baso # (0.0-0.1) K/mm3 Seg Neutrophils % (40.0-70.0) % Seg Neutrophils # (1.8-7.7) K/mm3 VBG pH (7.320-7.420) Sodium (137-145) mmol/L Potassium (3.6-5.0) mmol/L Chloride (98-107) mmol/L Carbon Dioxide (22-30) mmol/L Anion Gap mmol/L BUN (7-17) mg/dL Creatinine (0.7-1.2) mg/dL Estimated GFR ml/min BUN/Creatinine Ratio % Glucose (65-100) mg/dL POC Glucose 344 H (70-105) Calcium (8.4-10.2) mg/dL Troponin T (0.00-0.029) ng/mL Urine Color (Yellow) Urine Turbidity (Clear) Urine pH (5.0-7.0) Ur Specific [place] (1.003-1.030) Urine Protein (Negative) mg/dL Urine Glucose (UA) (Negative) mg/dL Urine Ketones (Negative) mg/dL Urine Blood (Negative) Urine Nitrite (Negative) Urine Bilirubin (Negative) Urine Urobilinogen (<2.0) mg/dL Ur Leukocyte Esterase (Negative) Urine WBC (Auto) (0.0-6.0) /HPF Urine RBC (Auto) (0.0-6.0) /HPF U Epithel Cells (Auto) (0-13.0) /HPF Urine Mucus /HPF - EKG Data -: EKG Interpreted by Wy - EKG Data Interpretation: other (EKG shows sinus rhythm rate of 99 normal axis normal intervals and no ST segment elevations or depressions. There is isolated T- wave inversion in lead 3, interpretation is 2020) - Radiology Data Radiology results: report reviewed chest x-ray shows no acute process - Medical Decision Making Patient is a 52-year-old asthmatic female who is presenting with atypical chest pain. Patient's blood pressure was elevated and was controlled here in emergency department with Catapres and labetalol. Discharge Sustiva blood pressure normal 130s. Patient blood glucose was elevated as well. Some of her atypical pain be due to a nerve pain secondary to elevated blood sugar. Patient was hydrated pressures started to come down. Patient states she is feeling improved. Patient is on low-dose of metoprolol this will be increased 25 mg twice a day. Patient also given cardiology for follow-up as well. Patient is stable for discharge home. Patient has very low heart score at this time does not meet criteria for admission. Critical care attestation.: If time is entered above; I have spent that time in minutes in the direct care of this critically ill patient, excluding procedure time. ED Disposition Clinical Impression: Hyperglycemia Chest pain Qualifiers: Chest pain type: unspecified Qualified Code(s): R07.9 - Chest pain, unspecified Disposition: DC- TO HOME OR SELFCARE Is pt being admited?: No Does the pt Need Aspirin: No Condition: Stable Instructions: Chest Pain (ED), Diabetic Hyperglycemia (ED) Prescriptions: Metoprolol [Lopressor TAB] 25 mg PO BID #60 tablet Referrals: MIREILLE BARAJAS MD [Staff Physician] - 3-5 Days
[2018-01-05 01:56] VITALS: BP 131/65
== END 2018-01-05 02:26 | disposition home or self-care (01) ==
LOC: ED 20:03
DX: I10 Essential (primary) hypertension (principal); E11.65 Type 2 diabetes mellitus with hyperglycemia; Z79.82 Long term (current) use of aspirin; Z79.4 Long term (current) use of insulin; G47.30 Sleep apnea, unspecified; Z90.710 Acquired absence of both cervix and uterus
CPT/HCPCS: 36415; 71046; 80048; 81001; 82805; 82962; 84484; 85025; 93005; 93010; 96361; 96374; 96375; 99284; J7030; J1815

== ENCOUNTER 2019-04-23 22:20 | Emergency (ER) | payer MEDICARE ==
[2019-04-23] MEDS ORDERED: TRIMOX PO ONE (22:37)
[2019-04-23] MEDS ORDERED: DECADRON IM ONE (22:37)
--- NOTE | 2019-04-23 22:37 | Emergency Department Report ---
Minor Respiratory - HPI Chief Complaint: Earache Stated Complaint: EAR PAIN Time Seen by Provider: 04/23/19 22:36 Pain Location: Ear Severity: moderate Minor Respiratory: Yes Able to Tolerate Fluids, Yes Ear Pain, No Rhinorrhea, No Sore Throat, No Cough, No Sick Contacts, No Hemoptysis, No Chest Pain, No Shortness of Breath, No Fever Other History: several week hx of ear ache. has seen md and has drops only. no fever. severe pain. ED Review of Systems ROS: Stated complaint: EAR PAIN Other details as noted in HPI Comment: All other systems reviewed and negative ED Past Medical Hx - Past Medical History Previous Medical History?: Yes Hx Hypertension: Yes Hx Congestive Heart Failure: No Hx Diabetes: Yes Hx Asthma: No Hx COPD: No Hx HIV: No Additional medical history: SLEEP APNEA. NARCOLEPSY. BORDERLINE HIGH CHOLESTEROL. OBESITY. NEUROPATHY - Surgical History Past Surgical History?: Yes Hx Cholecystectomy: Yes Additional Surgical History: HYSTERECTOMY - Family History Family history: no significant - Social History Smoking Status: Never Smoker Substance Use Type: None - Medications Home Medications: Home Medications Medication Instructions Recorded Confirmed Last Taken Type Aspirin EC 325 mg PO QDAY #100 tablet 11/28/15 01/17/17 08/01/16 Rx Lisinopril/Hydrochlorothiazide 10 mg PO QDAY #30 tablet 11/28/15 01/17/17 08/01/16 Rx [Zestoretic 20-25 mg] Potassium Chloride [Klor-Con 8] 8 meq PO QDAY #30 tablet 11/28/15 01/17/17 08/01/16 Rx metFORMIN [Glucophage] 500 mg PO TID #90 tablet 11/28/15 01/17/17 08/01/16 Rx celeBREX 20 mg PO DAILY 08/02/16 01/17/17 08/01/16 History Famotidine [Pepcid] 20 mg PO BID #60 tablet 08/03/16 01/17/17 Unknown Rx Simvastatin (Nf) [Zocor TAB] 20 mg PO QHS #30 tablet 08/03/16 01/17/17 Unknown Rx Dextroamphetamine/Amphetamine 30 mg PO BID 01/17/17 01/17/17 Unknown History [Adderall] Ergocalciferol [Vitamin D2] 1 cap PO QWEEK 01/17/17 01/17/17 Unknown History HYDROcodone/APAP 5-325 [[place] 1 each PO Q6HR PRN #20 tablet 01/17/17 Unknown Rx 5-325 mg TAB] Insulin Aspart Prot/Aspart(Nf) 25 units SQ BID 01/17/17 01/17/17 Unknown History [Novolog Mix 70/30] Insulin Glargine [Lantus] 60 unit SUB-Q QHS 01/17/17 01/17/17 Unknown History Metoprolol [Lopressor TAB] 25 mg PO BID #60 tablet 01/05/18 Unknown Rx Ciprofloxacin HCl [Ciprofloxacin 500 mg PO Q12HR #20 tab 04/23/19 Unknown Rx TAB] methylPREDNISolone [Medrol 4MG 4 mg PO DAILY #1 tab.ds.pk 04/23/19 Unknown Rx DOSEPAK (21 tabs)] traMADol [Ultram] 50 mg PO Q6HR PRN #10 tablet 04/23/19 Unknown Rx Minor Respiratory Exam - Exam General: Vital signs noted. No distress. Alert and acting appropriately. HEENT: Yes Pharyngeal Erythema, Yes Moist Mucous Membranes, No Pharyngeal Exudates Neck: Yes Supple, No Adenopathy Lungs: No Good Air Exchange, No Wheezes Heart: Yes Regular Abdomen: No Tenderness Skin: No Rash Neurologic: Alert and oriented, no deficits. Musculoskeletal: Unremarkable. ED Medical Decision Making - Medical Decision Making OM AND OE ON DROPS ONLY DECADRON IM AMOX PO EDUCATED ON BLOOD SUGAR HAS APNT END OF THE MONTH DC HOME WITH ORAL ANTIBIOTICS Critical care attestation.: If time is entered above; I have spent that time in minutes in the direct care of this critically ill patient, excluding procedure time. ED Disposition Clinical Impression: Otitis media, Otitis externa Disposition: DC- TO HOME OR SELFCARE Is pt being admited?: No Does the pt Need Aspirin: No Condition: Stable Instructions: Otitis Externa (ED), Otitis Media (ED) Additional Instructions: CONTINUE MEDS AT HOME FOLLOW DIABETIC DIET HYDRATE WELL WITH WATER MED ORDERED TODAY FOLLOW UP WITH DR MCCURDY Prescriptions: Ciprofloxacin HCl [Ciprofloxacin TAB] 500 mg PO Q12HR #20 tab methylPREDNISolone [Medrol 4MG DOSEPAK (21 tabs)] 4 mg PO DAILY #1 tab.ds.pk traMADol [Ultram] 50 mg PO Q6HR PRN #10 tablet PRN Reason: Pain Referrals: ZEYNEP MCCURDY MD [Staff Physician] - 3-5 Days Time of Disposition: 22:40
== END 2019-04-23 22:43 | disposition home or self-care (01) ==
LOC: ED 22:20
DX: H66.91 Otitis media, unspecified, right ear (principal); H60.91 Unspecified otitis externa, right ear; I10 Essential (primary) hypertension; E11.9 Type 2 diabetes mellitus without complications; Z90.49 Acquired absence of other specified parts of digestive tract
CPT/HCPCS: 96372; 99282; J1100

== ENCOUNTER 2019-08-14 11:00 | Outpatient (CLI) | payer MEDICARE | END 2019-08-14 11:01 | disposition home or self-care (01) | LOC: SLR 11:00 | PROVIDERS: ATTEND Otolaryngology | DX: G47.30 Sleep apnea, unspecified (principal); G47.419 Narcolepsy without cataplexy; I10 Essential (primary) hypertension; Z90.49 Acquired absence of other specified parts of digestive tract; Z90.710 Acquired absence of both cervix and uterus; F32.9 Major depressive disorder, single episode, unspecified | CPT/HCPCS: 95810 ==

== ENCOUNTER 2019-08-21 11:00 | Outpatient (CLI) | payer MEDICARE | END 2019-08-21 11:01 | disposition home or self-care (01) | LOC: SLR 11:00 | PROVIDERS: ATTEND Otolaryngology | DX: G47.33 Obstructive sleep apnea (adult) (pediatric) (principal) | CPT/HCPCS: 95811 ==

== ENCOUNTER 2019-08-29 12:41 | Outpatient (CLI) | payer MEDICARE ==
[2019-08-29 13:06] LABS: Basophils % (Auto) 0.9 % (0.0-1.8); Eosinophils # (Auto) 0.1 K/mm3 (0.0-0.4); Eosinophils % (Auto) 1.3 % (0.0-4.3); Hematocrit 40.3 % (30.3-42.9); Hemoglobin 12.6 gm/dl (10.1-14.3); Lymphocytes # (Auto) 1.7 K/mm3 (1.2-5.4); Lymphocytes % (Auto) 35.6 % (13.4-35.0); Mean Corpuscular HGB Conc 31 % (30-34); Monocytes # (Auto) 0.3 K/mm3 (0.0-0.8); Monocytes % (Auto) 6.4 % (0.0-7.3); Platelet Count 248 K/mm3 (140-440); Red Blood Count 5.98 M/mm3 (3.65-5.03); Red Cell Distribution Width 15.2 % (13.2-15.2)
[2019-08-29 13:21] LABS: Mean Corpuscular Volume 67 fl (79-97)
[2019-08-29 13:37] LABS: Alanine Aminotransferase 16 units/L (7-56); Albumin 4.1 g/dL (3.9-5); BUN/Creatinine Ratio 20; Blood Urea Nitrogen 12 mg/dL (7-17); Calcium 9.3 mg/dL (8.4-10.2); Chol/HDL Ratio 4.31 %; HDL Cholesterol 45 mg/dL (40-59); Hemolysis Index 0; LDL Cholesterol,Direct 150 mg/dL (50-130)
== END 2019-08-29 12:42 | disposition home or self-care (01) ==
LOC: LAB 12:41
PROVIDERS: ATTEND Surgery
DX: Z00.00 Encounter for general adult medical examination without abnormal findings (principal); E61.8 Deficiency of other specified nutrient elements; K30 Functional dyspepsia; D50.9 Iron deficiency anemia, unspecified; E11.9 Type 2 diabetes mellitus without complications; I10 Essential (primary) hypertension; E78.00 Pure hypercholesterolemia, unspecified; G47.30 Sleep apnea, unspecified; Z90.710 Acquired absence of both cervix and uterus; Z90.49 Acquired absence of other specified parts of digestive tract
CPT/HCPCS: 36415; 80053; 80061; 83036; 84443; 85025